=== PATIENT | female | born 1980 | race Caucasian/White ===

== ENCOUNTER 2020-10-19 15:49 | Emergency (ER) | payer SELFPAY ==
[~2020-10-19] VITALS: Ht 149.9 cm; Wt 54.9 kg
[2020-10-19 15:56] VITALS: BP 137/93
--- NOTE | 2020-10-19 16:10 | NUR ---
40 Y/O F BIB SELF FROM HOME WITH C/C VAGINAL BLEEDING X 1 DAY. PT STATES BLEEDING BEGAN AROUND 5-6AM ON 10/19 AND BLEEDS WHEN SHE USES THE RESTROOM AND WIPES. PT ALSO STATES ASSOCIATED LOWER ABDOMEN PAIN X 1 DAY, 10/08 PAIN NON-RADIATING. PT STATES SHE IS 8 WEEKS , LMP 08/11/20. [id number]. PT DENIES DYSURIA. LUNG SOUNDS CLEAR BILATERALLY. 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 BED LOCKED IN LOWEST POSITION, SIDE RAILS X 1, CALL LIGHT IN REACH PMH: C-SECTIONS NKA MEDS: DENIES
--- NOTE | 2020-10-19 16:13 | NUR ---
Florian brown in [facility] - 10/19/20 at 1616 by MICAELA RAD AT BEDSIDE
--- NOTE | 2020-10-19 16:13 | NUR ---
RAD AT BEDSIDE
--- NOTE | 2020-10-19 16:14 | NUR ---
US at bedside.
--- NOTE | 2020-10-19 16:20 | NUR ---
lab at bedside
--- NOTE | 2020-10-19 16:30 | NUR ---
US AT BEDSIDE
[2020-10-19 16:39] LABS: BASOPHILS % (AUTO) 0.7 % (0.0-2.0); EOSINOPHILS # (AUTO) 0.3 K/uL (0-0.4); EOSINOPHILS % (AUTO) 3.5 % (0.0-4.0); HEMATOCRIT 39.6 % (36-48); HEMOGLOBIN 12.9 g/dL (12.0-16.0); LYMPHOCYTES # (AUTO) 2.1 K/uL (2.5-16.5); LYMPHOCYTES % (AUTO) 28.1 % (20.5-51.1); MEAN CORPUSCULAR HEMOGLOBIN 28 pg (27-31); MEAN CORPUSCULAR HGB CONC 33 g/dL (33-37); MEAN CORPUSCULAR VOLUME 85.4 fL (80-94); MONOCYTES # (AUTO) 0.6 K/uL (0.8-1.0); MONOCYTES % (AUTO) 7.8 % (1.7-9.3); NEUTROPHILS # (AUTO) 4.4 K/uL (1.8-7.7); NEUTROPHILS % (AUTO) 59.9 % (42.2-75.2); PLATELET COUNT (AUTO) 376 K/uL (140-450); RED BLOOD CELL COUNT(AUTO) 4.63 MIL/uL (4.20-5.40); RED CELL DISTRIBUTION WIDTH 17.4 % (11.6-13.7); WHITE BLOOD COUNT (AUTO) 7.4 K/uL (4.8-10.8)
--- NOTE | 2020-10-19 17:00 | NUR ---
PT AWAKE RESTING IN SEMI-FOWLERS POSITION. PT STATES PAIN IS 0/10. PHONE PROVIDED TO PT PER REQUEST. ALL PT NEEDS MET AT THIS TIME. EQUAL CHEST RISE AND FALL. 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 BED LOCKED IN LOWEST POSITION, SIDE RAILS X 1, CALL LIGHT IN REACH
[2020-10-19 18:08] LABS: APPEARANCE,URINE CLEAR (CLEAR); BILIRUBIN,URINE NEGATIVE (NEGATIVE); BLOOD, URINE 2+ (NEGATIVE); COLOR,URINE YELLOW (YELLOW); LEUKOCYTE ESTERASE ,URINE NEGATIVE (NEGATIVE); NITRITE, URINE NEGATIVE (NEGATIVE); PH,URINE 5.5 (5.0-9.0); UGLUCOSE NEGATIVE (NEGATIVE)
[2020-10-19 18:19] LABS: RBC,URINE 11-20 (MOD) /HPF (0-5); WBC,URINE 0-5 /HPF (0-5)
--- NOTE | 2020-10-19 18:27 | NUR ---
PT REQUESTED BED TO BE POSITIONED HIGHER. ALL PT NEEDS MET AT THIS TIME. 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 EQUAL CHEST RISE AND FALL. VSS. NO OBVIOUS DISTRESS NOTED. PT STATES PAIN 0/10. BED LOCKED IN LOWEST POSITION, SIDE RAILS X 1, CALL LIGHT IN REACH
[2020-10-19 18:45] VITALS: BP 109/63
--- NOTE | 2020-10-19 18:45 | NUR ---
Patient discharged with v/s stable. Written and verbal after care instructions given and explained. Patient verbalized understanding. Ambulatory with steady gait. All questions addressed prior to discharge. Advised to follow up with PMD.
== END 2020-10-19 18:45 | disposition home or self-care (01) ==
LOC: MED 15:49
DX: O03.9 Complete or unspecified spontaneous abortion without complication (principal)
CPT/HCPCS: 36415; 76817; 81001; 81025; 84702; 85025; 86900; 86901; 99284

== ENCOUNTER 2021-04-16 15:25 | Emergency (ER) | payer MEDICAID ==
[~2021-04-16] VITALS: Ht 147.3 cm; Wt 56.2 kg
[2021-04-16 15:33] VITALS: BP 142/54
--- NOTE | 2021-04-16 17:11 | NUR ---
Pt taken to ER bed 10.
--- NOTE | 2021-04-16 17:16 | NUR ---
Pt resting in bed, visible equal rise and fall of chest, VSS, will continue to monitor.
--- NOTE | 2021-04-16 17:43 | NUR ---
40 Y/O FEMALE C/O LIGHT VAGINAL SPOTTING WITH CRAMPING 6/10 X3 DAYS AGO. PT STATES HER MENSTRUATION LASTED 4 MONTHS, PT STATES HER LMP WAS 12/14/20, PT WAS TOLD IN SHE HAD MISCARRIGE. DENIES N/V, DENIES FEVER/CHILLS. DENIES PMH ALLERGY: KALI
[2021-04-16] MEDS ORDERED: ACET-10509 PO (17:58)
[2021-04-16 18:42] VITALS: BP 119/75
--- NOTE | 2021-04-16 18:42 | NUR ---
Patient discharged with v/s stable. Written and verbal after care instructions given and explained. Patient alert, oriented and verbalized understanding of instructions. Ambulatory with steady gait. All questions addressed prior to discharge. ID band removed. Patient advised to follow up with PMD. Rx of TYLENOL EXTRA STRENGTH PO 500 MG PRN Q4-6 HRS FOR PAIN given. Patient educated on indication of medication including possible reaction and side effects. Opportunity to ask questions provided and answered.
== END 2021-04-16 18:42 | disposition home or self-care (01) ==
LOC: MED 15:25
DX: N94.6 Dysmenorrhea, unspecified (principal); Z79.899 Other long term (current) drug therapy
CPT/HCPCS: 81002; 81025; 99282

== ENCOUNTER 2023-11-18 13:51 | Emergency (ER) | payer MEDICAID, OTHER ==
[~2023-11-18] VITALS: Ht 160 cm; Wt 54.0 kg
[~2023-11-18 13:51] MED LIST: ACET-10509 PO
[2023-11-18 14:17] VITALS: BP 127/75; PULSE 68; RESP 20; TEMP 97.7; O2SAT 100
[2023-11-18] MEDS: KETOROLAC 30 MG/ML VIAL IM ONE (14:56)
[2023-11-18] MEDS ORDERED: CYCL-711 PO (16:08)
[2023-11-18] MEDS ORDERED: LID5T TP (16:08)
[2023-11-18] MEDS ORDERED: NAPR-54 PO (16:08)
== END 2023-11-18 16:31 | disposition home or self-care (01) ==
LOC: MED 13:51
DX: S93.491A Sprain of other ligament of right ankle, initial encounter (principal); V49.88XA Car occupant (driver) (passenger) injured in other specified transport accidents, initial encounter; Y93.89 Activity, other specified; Y92.89 Other specified places as the place of occurrence of the external cause; Y99.8 Other external cause status
CPT/HCPCS: 73610; 96372; 99283; J1885